=== PATIENT | male | born 1990 | race Caucasian/White ===

== ENCOUNTER 2016-11-22 09:11 | Emergency (ER) | payer SELFPAY ==
[~2016-11-22] VITALS: Ht 182.9 cm; Wt 88.5 kg
[2016-11-22 09:14] VITALS: BP 150/83
[2016-11-22] MEDS ORDERED: PENICILLIN VK 500MG TABLET PO ONE (10:00)
[2016-11-22] MEDS ORDERED: KETOROLAC 30 MG/1 ML IM ONE (10:00)
[2016-11-22] MEDS ORDERED: KETOROLAC 30 MG/1 ML ONE (10:07)
== END 2016-11-22 10:32 | disposition home or self-care (01) ==
LOC: ED 10:20
DX: K04.7 Periapical abscess without sinus (principal)
CPT/HCPCS: 96372; 99283; J1885

== ENCOUNTER 2017-05-20 19:01 | Emergency (ER) | payer SELFPAY ==
[~2017-05-20] VITALS: Ht 182.9 cm; Wt 79.6 kg
[2017-05-20 19:07] VITALS: BP 121/71
[2017-05-20] MEDS ORDERED: DEXAMETHASONE 4 MG TABLET PO STA (20:08)
[2017-05-20 20:09] LABS: RAPID INFLUENZA A Negative (Negative); RAPID INFLUENZA B Negative (Negative)
[2017-05-20] MEDS ORDERED: DEXAMETHASONE 4 MG TABLET ONE (20:14)
== END 2017-05-20 20:34 | disposition home or self-care (01) ==
LOC: ED 20:30
DX: J20.9 Acute bronchitis, unspecified (principal); J02.8 Acute pharyngitis due to other specified organisms; F17.210 Nicotine dependence, cigarettes, uncomplicated
CPT/HCPCS: 71046; 87400; 99285

== ENCOUNTER 2017-05-30 11:01 | Emergency (ER) | payer OTHER ==
[~2017-05-30] VITALS: Ht 182.9 cm; Wt 78.9 kg
[2017-05-30] MEDS ORDERED: BUPIVACAINE/PF 0.5% ONE (11:58)
[2017-05-30] MEDS ORDERED: BUPIVACAINE/PF-EPI 0.25% 1:200K SQ ONE (12:00)
[2017-05-30] MEDS ORDERED: DIPH,PERTUSS(ACELL),TET VAC/PF 0.5 ML IM-VACC ONE ×2 (12:30→13:13)
[2017-05-30] MEDS ORDERED: CEFAZOLIN 1,000 MG IM ONE (13:30)
[2017-05-30] MEDS ORDERED: CEFAZOLIN 1,000 MG ONE (13:40)
[2017-05-30] MEDS ORDERED: BACITRACIN ZINC OINT 500U/GM, 0.9 GM ONE (13:53)
[2017-05-30 14:06] VITALS: BP 122/70
== END 2017-05-30 14:36 | disposition home or self-care (01) ==
LOC: ED 12:43
DX: S62.631B Displaced fracture of distal phalanx of left index finger, initial encounter for open fracture (principal); X58.XXXA Exposure to other specified factors, initial encounter; Y93.89 Activity, other specified; Y92.89 Other specified places as the place of occurrence of the external cause; Y99.8 Other external cause status
CPT/HCPCS: 29130; 73140; 90471; 90715; 96372; 99284; J0690; 12001